=== PATIENT | female | born 2000 | race Caucasian/White ===

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

== ENCOUNTER 2020-01-08 12:33 | Emergency (ER) | payer MEDICAID, OTHER ==
--- NOTE | 2020-01-08 13:17 | EDM.PDOC ---
ED HPI GENERAL MEDICAL PROBLEM - General Chief Complaint: General Stated Complaint: COVID SYMPTOMS Time Seen by Provider: 01/08/20 13:12 Source of Information: Reports: Patient History Limitations: Reports: No Limitations - History of Present Illness INITIAL COMMENTS - FREE TEXT/NARRATIVE: 19 yo female presents requesting a Covid test. Has had mild malaise for a couple days. Mild anterior chest wall pain. Has a mild MONTES and sore throat. No definite fever. No known exposures. Has no primary care provider. No cough. No GI sx's. Onset: Gradual Onset Date: 01/05/20 Duration: Day(s): (3), Waxing/Waning Location: Reports: Head, Neck, Chest Quality: Reports: Dull Severity: Mild Improves with: Reports: Medication Worsens with: Reports: None Context: Reports: Other (See HPI) Associated Symptoms: Reports: Chest Pain (ant chest wall), Fever/Chills (no fever, chills only), Headaches, Malaise. 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, Heart Murmur Other Cardiovascular History: Patient states she was born with an enlarged heart, a hole in her heart, a murmer and leaky valves Gastrointestinal History: Reports: None Other Genitourinary History: patient states; over active bladder; urinary incontience; urinary retention when in public 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 Musculoskeletal History: Reports: None Neurological History: Reports: None Psychiatric History: Reports: Anxiety, Depression Other Psychiatric History: states she has been diagnosed with massive depressive disorder and anxiety; was taking sertraline and lorazepam for almost a year but stopped taking about 2-3 months ago as she was unable to get refills Endocrine/Metabolic History: Reports: None Hematologic History: Reports: None Immunologic History: Reports: None Oncologic (Cancer) History: Reports: None Dermatologic History: Reports: None - Past Surgical History Other Cardiovascular Surgeries/Procedures: states they placed a device for the hole in her heart but does not think anything was done with the leaky valves as it was a "slow leak" Social & Family History - Caffeine Use Caffeine Use: Reports: Soda ED ROS GENERAL - Review of Systems Review Of Systems: See Below Constitutional: Reports: Chills, Malaise. Denies: Fever, Diaphoresis HEENT: Reports: Throat Pain (mild). Denies: Ear Pain, Rhinitis, Throat Swelling Respiratory: Denies: Shortness of Breath, Pleuritic Chest Pain, Cough, Sputum, Hemoptysis Cardiovascular: Reports: No Symptoms GI/Abdominal: Reports: No Symptoms : Reports: No Symptoms Musculoskeletal: Reports: No Symptoms Skin: Reports: No Symptoms Neurological: Reports: No Symptoms ED EXAM, GENERAL - Physical Exam Exam: See Below Exam Limited By: No Limitations General Appearance: Alert, WD/WN, No Apparent Distress Eye Exam: Bilateral Eye: Normal Inspection Ears: Normal External Exam, Normal Canal, Hearing Grossly Normal, Normal TMs Ear Exam: Bilateral Ear: Auricle Normal, Canal Normal, TM normal Nose: Normal Inspection, No Blood Throat/Mouth: Normal Inspection, Normal Lips, Normal Oropharynx, Normal Voice, No Airway Compromise Head: Atraumatic, Normocephalic Neck: Normal Inspection Respiratory/Chest: No Respiratory Distress, Lungs Clear, Normal Breath Sounds, No Accessory Muscle Use Cardiovascular: Regular Rate, Rhythm, No Edema GI/Abdominal: Normal Bowel Sounds, Soft, Non-Tender, No Distention Back Exam: Normal Inspection. No: CVA Tenderness (R), CVA Tenderness (L) Extremities: Normal Inspection Neurological: Alert, Oriented, CN II-XII Intact, Normal Cognition, No Motor/Sensory Deficits Psychiatric: Normal Affect, Normal Mood Skin Exam: Warm, Dry, Intact, Normal Color, No Rash Course - Orders/Labs/Meds Orders: Active Orders 24 hr Category Date Time Status CORONAVIRUS COVID-19, JAVIER Routine Lab 01/08/20 13:00 Ordered Departure - Departure Time of Disposition: 13:17 Disposition: Home, Self-Care 01 Condition: Good Clinical Impression: Viral syndrome - Discharge Information *PRESCRIPTION DRUG MONITORING PROGRAM REVIEWED*: No *COPY OF PRESCRIPTION DRUG MONITORING REPORT IN PATIENT KENYATTA: No Instructions: Viral Illness, Adult, Hand Washing Referrals: PCP,Unknown [Primary Care Provider] - Forms: ED Department Discharge Additional Instructions: Acetaminophen as needed. Drink ample fluids. Get established with a local provider. We will call you with your test results when they are available. - My Orders Last 24 Hours: My Active Orders 01/08/20 13:00 CORONAVIRUS COVID-19, JAVIER Routine - Assessment/Plan Last 24 Hours: My Active Orders 01/08/20 13:00 CORONAVIRUS COVID-19, JAVIER Routine
== END 2020-01-08 13:25 | disposition home or self-care (01) ==
LOC: FB.ED 12:33
DX: B34.9 Viral infection, unspecified (principal); Z20.828 Contact with and (suspected) exposure to other viral communicable diseases
CPT/HCPCS: 99284; U0002

== ENCOUNTER 2021-01-01 13:38 | Emergency (ER) | payer MEDICAID ==
[2021-01-01] MEDS ORDERED: Aspirin 81 MG Tab.Chew PO ONE (13:55)
[2021-01-01] MEDS ORDERED: Metoprolol Tartrate 25 MG Tab PO ONE (14:11)
[2021-01-01] MEDS ORDERED: Morphine 2 MG/ML SYRINGE IVPUSH STA (14:11)
--- NOTE | 2021-01-01 14:54 | EDM.PDOC ---
ED HPI GENERAL MEDICAL PROBLEM - General Chief Complaint: Chest Pain Stated Complaint: CHEST PAIN Time Seen by Provider: 01/01/21 14:05 Source of Information: Reports: Patient History Limitations: Reports: No Limitations - History of Present Illness INITIAL COMMENTS - FREE TEXT/NARRATIVE: Patient presented to the ED because of chest pain which started at 1900 while resting. The pain is sharp, 8/10 without any associated nausea/vomiting dyspnea. 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, a hole in her heart, a murmer and leaky valves Gastrointestinal History: Reports: None Other Genitourinary History: patient states; over active bladder; urinary incontience; urinary retention when in public 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 Musculoskeletal History: Reports: None Neurological History: Reports: None Psychiatric History: Reports: Anxiety, Depression Other Psychiatric History: states she has been diagnosed with massive depressive disorder and anxiety; was taking sertraline and lorazepam for almost a year but stopped taking about 2-3 months ago as she was unable to get refills Endocrine/Metabolic History: Reports: None Hematologic History: Reports: None Immunologic History: Reports: None Oncologic (Cancer) History: Reports: None Dermatologic History: Reports: None - Past Surgical History Other Cardiovascular Surgeries/Procedures: states they placed a device for the hole in her heart but does not think anything was done with the leaky valves as it was a "slow leak" Social & Family History - Family History Family Medical History: No Pertinent Family History - Tobacco Use Tobacco Use Status *Q: Unknown Ever Used Tobacco - Caffeine Use Caffeine Use: Reports: Tea ED ROS GENERAL - Review of Systems Review Of Systems: See Below Constitutional: Reports: No Symptoms HEENT: Reports: No Symptoms Respiratory: Reports: No Symptoms Cardiovascular: Reports: Chest Pain Endocrine: Reports: No Symptoms GI/Abdominal: Reports: No Symptoms : Reports: No Symptoms Musculoskeletal: Reports: No Symptoms Skin: Reports: No Symptoms Neurological: Reports: No Symptoms ED EXAM, GENERAL - Physical Exam Exam: See Below Exam Limited By: No Limitations General Appearance: Alert, No Apparent Distress Eye Exam: Bilateral Eye: PERRL Ears: Normal External Exam, Normal Canal Nose: Normal Inspection, Normal Mucosa, No Blood Throat/Mouth: Normal Inspection, Normal Lips, Normal Teeth Head: Atraumatic, Normocephalic Neck: Normal Inspection, Supple, Non-Tender, Full Range of Motion Respiratory/Chest: No Respiratory Distress, Lungs Clear, Normal Breath Sounds Cardiovascular: Normal Peripheral Pulses, Regular Rate, Rhythm, No Edema GI/Abdominal: Normal Bowel Sounds, Soft, Non-Tender, No Organomegaly Back Exam: Normal Inspection, Full Range of Motion #1 Interpretation EKG Date: 01/01/21 Time: 13:38 Rhythm: NSR Rate (Beats/Min): 90 [place]: Normal P-Wave: Present QRS: Normal ST-T: Normal QT: Normal Comparison: NA - No Prior EKG EKG Interpretation Comments: NSR Course - Vital Signs Text/Narrative:: Lab/EKG result was reviewed and discussed with patient ASA 324 mg PO x1 Morphine 2 mg IV x1 Metoprolol tartrate 25 mg PO x1 Last Recorded V/S: Last Vital Signs Temp 36.7 C 01/01/21 14:03 Pulse 85 01/01/21 14:30 Resp 18 01/01/21 14:03 BP 139/75 01/01/21 14:30 Pulse Ox 99 01/01/21 14:03 - Orders/Labs/Meds Orders: Active Orders 24 hr Category Date Time Status EKG Documentation Completion [RC] ASDIRECTED Care 01/01/21 13:40 Active EKG 12 Lead [EK] Routine Ther 01/01/21 13:40 Ordered Labs: Laboratory Tests 01/01/21 01/01/21 01/01/21 Range/Units 14:20 14:20 14:20 WBC 7.3 (3.0-10.3) x10-3/uL RBC 4.26 (3.60-5.20) x10(6)uL Hgb 12.3 (11.4-15.5) g/dL Hct 35.9 (34.2-48.2) % MCV 84.3 (76.7-100.5) fL MCH 28.8 (23.9-33.9) pg MCHC 34.2 (31.9-34.8) g/dL RDW 14.9 (12.3-16.5) % Plt Count 276 (151-488) x10(3)uL MPV 8.0 (7.1-12.4) fL Neut % (Auto) 68.7 (30.8-76.2) % Lymph % (Auto) 24.7 (18.4-52.1) % [place] % (Auto) 4.7 (4.4-15.7) % Eos % (Auto) 1.6 (0.6-8.1) % Baso % (Auto) 0.3 (0.2-1.5) % Neut # (Auto) 5.0 (1.5-6.3) x10-3/uL Lymph # (Auto) 1.8 (1.0-4.4) x10-3/uL [place] # (Auto) 0.3 (0.3-1.0) x10-3/uL Eos # (Auto) 0.1 (0.0-0.8) x10-3/uL Baso # (Auto) 0.0 (0.0-0.1) x10-3/uL D-Dimer, Quantitative 0.28 (0.0-0.59) mg/LFEU Sodium 143 (135-145) mmol/L Potassium 4.0 (3.5-5.3) mmol/L Chloride 108 (100-110) mmol/L Carbon Dioxide 25 (21-32) mmol/L BUN 10 D (7-18) mg/dL Creatinine 0.8 (0.55-1.02) mg/dL Est Cr Clr Drug Dosing 96.86 mL/min Estimated GFR (MDRD) > 60 (>60) BUN/Creatinine Ratio 12.5 (9-20) Glucose 112 (80-116) mg/dL Calcium 9.1 (8.6-10.2) mg/dL Troponin I (4.0-60.3) pg/mL 01/01/21 Range/Units 14:20 WBC (3.0-10.3) x10-3/uL RBC (3.60-5.20) x10(6)uL Hgb (11.4-15.5) g/dL Hct (34.2-48.2) % MCV (76.7-100.5) fL MCH (23.9-33.9) pg MCHC (31.9-34.8) g/dL RDW (12.3-16.5) % Plt Count (151-488) x10(3)uL MPV (7.1-12.4) fL Neut % (Auto) (30.8-76.2) % Lymph % (Auto) (18.4-52.1) % [place] % (Auto) (4.4-15.7) % Eos % (Auto) (0.6-8.1) % Baso % (Auto) (0.2-1.5) % Neut # (Auto) (1.5-6.3) x10-3/uL Lymph # (Auto) (1.0-4.4) x10-3/uL [place] # (Auto) (0.3-1.0) x10-3/uL Eos # (Auto) (0.0-0.8) x10-3/uL Baso # (Auto) (0.0-0.1) x10-3/uL D-Dimer, Quantitative (0.0-0.59) mg/LFEU Sodium (135-145) mmol/L Potassium (3.5-5.3) mmol/L Chloride (100-110) mmol/L Carbon Dioxide (21-32) mmol/L BUN (7-18) mg/dL Creatinine (0.55-1.02) mg/dL Est Cr Clr Drug Dosing mL/min Estimated GFR (MDRD) (>60) BUN/Creatinine Ratio (9-20) Glucose (80-116) mg/dL Calcium (8.6-10.2) mg/dL Troponin I 9.9 (4.0-60.3) pg/mL Meds: Medications Discontinued Medications Generic Name Dose Route Start Last Admin Trade Name Freq PRN Reason Stop Dose Admin Aspirin 324 mg 01/01/21 13:55 01/01/21 13:55 Aspirin 81 Mg Tab.Chew PO 01/01/21 13:56 324 mg ONETIME ONE Administration Metoprolol Tartrate 25 mg 01/01/21 14:11 01/01/21 14:30 Metoprolol Tartrate 25 Mg Tab PO 01/01/21 14:12 25 mg ONETIME ONE Administration Morphine Sulfate 2 mg 01/01/21 14:11 01/01/21 14:26 Morphine 2 Mg/Ml Syringe IVPUSH 01/01/21 14:12 2 mg NOW STA Administration Departure - Departure Time of Disposition: 15:00 Disposition: Home, Self-Care 01 Condition: Good Clinical Impression: Chest pain, Palpitations Prescriptions: Metoprolol Tartrate 25 mg PO DAILY PRN #30 tablet PRN Reason: palpitations Instructions: Chest Wall Pain, [id number], Palpitations, [id number] Referrals: Erika Rockwell REMEDY DEVELOPER [Primary Care Provider] - Forms: ED Department Discharge Additional Instructions: Please read discharge instructions on chest pain and palpitations Take metoprolol tartrate 25 mg 1-2 tablets daily as needed for palpitations Follow up as need Sepsis Event Note (ED) - Evaluation Sepsis Screening Result: No Definite Risk - My Orders Last 24 Hours: My Active Orders 01/01/21 13:40 EKG Documentation Completion [RC] ASDIRECTED EKG 12 Lead [EK] Routine - Assessment/Plan Last 24 Hours: My Active Orders 01/01/21 13:40 EKG Documentation Completion [RC] ASDIRECTED EKG 12 Lead [EK] Routine
== END 2021-01-01 15:05 | disposition home or self-care (01) ==
LOC: FB.ED 13:38
DX: R07.9 Chest pain, unspecified (principal); R00.2 Palpitations
CPT/HCPCS: 36415; 80048; 84484; 85025; 85379; 93005; 93010; 96374; 99284; 99285-25; A9270-GY; J2270

== ENCOUNTER 2021-04-05 19:59 | Emergency (ER) | payer MEDICAID ==
[2021-04-05] MEDS ORDERED: Alum Hydroxide/Mag Hydroxide 30 ML, Lidocaine 2% 15 ML PO ONE ×2 (20:30)
--- NOTE | 2021-04-05 20:39 | EDM.PDOC ---
ED HPI GENERAL MEDICAL PROBLEM - General Stated Complaint: CHEST PAIN Time Seen by Provider: 04/05/21 20:10 Source of Information: Reports: Patient, EMS History Limitations: Reports: No Limitations - History of Present Illness INITIAL COMMENTS - FREE TEXT/NARRATIVE: c/o [facility] pt ate fast food at home, 30 minute later developed burning in mid chest, took no meds at home, called EMS who brought her here says she had a PDA that was closed with a mechanical device at age 5, says she "has 5 heart conditions" labs (CBC/CMP/trop/ddimer) were all neg here this summer no sob, no f/c/d lives with trinidad and 5 mo child (who is in good health) - Related Data Allergies Allergy/AdvReac Type Severity Reaction Status Date / Time No Known Allergies Allergy Verified 01/01/21 14:01 Home Meds: Home Meds Multivit-Min/Iron/Folic/[id number] [Hair, Skin and Nails Tablet] 1 each PO DAILY 12/29/19 [History] Metoprolol Tartrate 25 mg PO DAILY PRN #30 tablet 01/01/21 [Rx] Omeprazole 20 mg PO DAILY #10 tablet. 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 Musculoskeletal History: Reports: None Neurological History: Reports: None Psychiatric History: Reports: Anxiety, Depression Other Psychiatric History: states she has been diagnosed with massive depressive disorder and anxiety; was taking sertraline and lorazepam for almost a year but stopped taking about 2-3 months ago as she was unable to get refills Endocrine/Metabolic History: Reports: None Hematologic History: Reports: None Immunologic History: Reports: None Oncologic (Cancer) History: Reports: None Dermatologic History: Reports: None - Past Surgical History Other Cardiovascular Surgeries/Procedures: states they placed a device for the hole in her heart but does not think anything was done with the leaky valves as it was a "slow leak" Social & Family History - Family History Family Medical History: No Pertinent Family History - Caffeine Use Caffeine Use: Reports: Tea ED ROS GENERAL - Review of Systems Review Of Systems: See Below Constitutional: Reports: No Symptoms. Denies: Fever HEENT: Reports: No Symptoms Respiratory: Reports: No Symptoms. Denies: Shortness of Breath, Wheezing, Cough Cardiovascular: Reports: Chest Pain Endocrine: Reports: No Symptoms GI/Abdominal: Reports: No Symptoms. Denies: Nausea, Vomiting : Reports: No Symptoms Musculoskeletal: Reports: No Symptoms Skin: Reports: No Symptoms Neurological: Reports: No Symptoms Psychiatric: Reports: No Symptoms Hematologic/Lymphatic: Reports: No Symptoms Immunologic: Reports: No Symptoms ED EXAM, GI/ABD - Physical Exam Exam: See Below Exam Limited By: No Limitations General Appearance: Alert, WD/WN, No Apparent Distress, Other (alert, pleasant, walked into ED with mainframe systems programmer, NAD) Nose: Normal Inspection Throat/Mouth: Normal Inspection Head: Atraumatic, Normocephalic Neck: Normal Inspection, Supple, Non-Tender, Full Range of Motion. No: Lymphadenopathy (R), Lymphadenopathy (L) Respiratory/Chest: No Respiratory Distress, Lungs Clear, Normal Breath Sounds, No Accessory Muscle Use, Chest Non-Tender, Other (ribs NT) Cardiovascular: Regular Rate, Rhythm, No Edema, No Gallop, No Murmur, No Rub GI/Abdominal Exam: Soft, Non-Tender, No Distention Back Exam: Normal Inspection, Full Range of Motion Extremities: Normal Inspection, Non-Tender, No Pedal Edema Neurological: Alert, Oriented, CN II-XII Intact, Normal Cognition, Normal Gait, No Motor/Sensory Deficits Psychiatric: Normal Affect, Normal Mood Skin Exam: Warm, Dry, Intact, Normal Color, No Rash Lymphatic: No Adenopathy Course - Orders/Labs/Meds Orders: Active Orders 24 hr Category Date Time Status Pantoprazole [ProTONIX] Med 04/05/21 22:13 Once 40 mg PO NOW ONE Labs: Laboratory Tests 04/05/21 Range/Units 20:40 Troponin I 6.6 (4.0-60.3) pg/mL Meds: Medications Discontinued Medications Generic Name Dose Route Start Last Admin Trade Name Freq PRN Reason Stop Dose Admin Al Hydroxide/Mg Hydroxide 30 0 ml 04/05/21 20:30 04/05/21 20:47 ml/ Lidocaine HCl 15 ml PO 04/05/21 20:31 45 ml ONETIME ONE Administration - Re-Assessments/Exams Free Text/Narrative Re-Assessment/Exam: 04/05/21 22:18 trop neg, EKG neg cp resolved completely after GI cocktail last saw cardiology 2m ago and was doing well, no clinical evidence of CV concerns Departure - Departure Time of Disposition: 22:13 Disposition: Home, Self-Care 01 Condition: Good Clinical Impression: GERD (gastroesophageal reflux disease) - Discharge Information *PRESCRIPTION DRUG MONITORING PROGRAM REVIEWED*: Not Applicable *COPY OF PRESCRIPTION DRUG MONITORING REPORT IN PATIENT [place]: Not Applicable Prescriptions: Omeprazole 20 mg PO DAILY #10 tablet. Instructions: Gastroesophageal Reflux Disease, Adult Additional Instructions: To decrease acid production, take omeprazole 20 mg 1 capsule daily for 7 days. To neutralize acid, take liquid antacid 30 ml (2 tablespoons) every 4 hours as needed. Avoid fatty foods for next several days. Your heart tests are within normal limits. See your primary care provider in the next several days for further recommendations. - My Orders Last 24 Hours: My Active Orders 04/05/21 22:13 Pantoprazole [ProTONIX] 40 mg PO NOW ONE - Assessment/Plan Last 24 Hours: My Active Orders 04/05/21 22:13 Pantoprazole [ProTONIX] 40 mg PO NOW ONE
[2021-04-05] MEDS ORDERED: Pantoprazole 40 MG Tab.CR PO ONE (22:13)
== END 2021-04-05 23:05 | disposition home or self-care (01) ==
LOC: FB.ED 19:59
DX: K21.9 Gastro-esophageal reflux disease without esophagitis (principal); Z79.899 Other long term (current) drug therapy
CPT/HCPCS: 36415; 84484; 93005; 99285; A9270

== ENCOUNTER 2021-04-11 17:57 | Emergency (ER) | payer MEDICAID ==
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
[2021-04-11] MEDS: Ketorolac 30 MG/ML SDV IM STA (18:19)
[2021-04-11] MEDS: traMADol 50 MG Tab PO ONE (18:20)
[2021-04-11] MEDS: Cyclobenzaprine 10 MG Tab PO ONE (18:20)
[2021-04-11] MEDS: traMADol 50 MG Tab ONE (18:42)
== END 2021-04-11 19:00 | disposition home or self-care (01) ==
LOC: FB.ED 17:57
DX: S39.012A Strain of muscle, fascia and tendon of lower back, initial encounter (principal); Z79.899 Other long term (current) drug therapy; Y04.0XXA Assault by unarmed brawl or fight, initial encounter
CPT/HCPCS: 96372; 99283; A9270; J1885